=== PATIENT | male | born 1985 | race African-American/Black ===

== ENCOUNTER 2019-10-18 02:51 | Emergency (ER) | payer MEDICAID ==
[~2019-10-18] VITALS: Ht 177.8 cm; Wt 77.3 kg
[2019-10-18 02:55] VITALS: BP 119/72
== END 2019-10-18 04:11 | disposition home or self-care (01) ==
LOC: ER 02:52
DX: T81.9XXA Unspecified complication of procedure, initial encounter (principal); Z72.89 Other problems related to lifestyle
CPT/HCPCS: 99281